=== PATIENT | male | born 1960 | race Caucasian/White ===

== ENCOUNTER 2017-05-05 15:12 | Emergency (ER) | payer SELFPAY ==
--- NOTE | ~2017-05-05 | CR63 ---
[facility] A Service of [facility] / [facility] RADIOLOGY TEXT RESULTS PATIENT: KATI KELLEY LOCATION: SED : 62 UNIT #: [id number] AGE: [address]: Jovany Greer MD SEX: M ORDER DR: [id number] [address] [address] [id number] E MR#: [id number] Acc #: [id number] NAME: KATI KELLEY : 1960 SEX: M STUDY DATE/TIME: 05/05/2017 16:33 UNIT: SED ROOM: STUDY DESCRIPTION: CR Chest 2 View Attending Physician: Jovany Greer M.D. Ordering Physician: Jovany Greer M.D. Primary Care Physician: No Primary Care Physician MEDICAL IMAGING REPORT This report is preliminary unless electronic signature is present. EXAM PA and lateral chest 05/05/2017 HISTORY 57-year-old male in the ED complaining of 1-week history of cough and right-sided chest pain. Hemoptysis began today. TECHNIQUE PA and lateral upright chest series. FINDINGS The examination shows advanced diffuse pulmonary emphysema. Chronic-appearing scarring is noted at both lung bases. Soft tissue prominence is noted at the right lung apex medially along the mediastinal border. Given the finding of emphysema and the history of hemoptysis, chest CT examination is recommended for further assessment to exclude suspicious pulmonary lesion. Heart size and pulmonary vascularity are normal. No visible pleural effusion. IMPRESSION 1. Advanced pulmonary emphysema. 2. Soft tissue prominence at the right lung apex medially. Given the history of hemoptysis, chest CT is recommended for further evaluation. Dictated by... Tani Mann M.D. THIS IS AN ELECTRONICALLY VERIFIED REPORT Tani Mann M.D. at 05/06/2017 12:52 PM RGW/rnr [facility] A Service of [facility] / [facility] RADIOLOGY TEXT RESULTS PATIENT: KATI KELLEY LOCATION: SED : 62 UNIT #: [id number] AGE: [address]: Jovany Greer MD SEX: M ORDER DR: TD: 05/06/2017 02:20 JOB #: [id number] MEDICAL IMAGING REPORT Page 1 of 1
--- NOTE | ~2017-05-05 | CT16 ---
[facility] A Service of [facility] & [facility] RADIOLOGY TEXT RESULTS PATIENT: KATI KELLEY LOCATION: SED : 62 UNIT #: [id number] AGE: [address]: Jovany Greer MD SEX: M ORDER DR: [id number] [address] [address] [id number] E MR#: [id number] Acc #: [id number] NAME: KATI KELLEY : 1960 SEX: M STUDY DATE/TIME: 05/05/2017 17:41 UNIT: SED ROOM: STUDY DESCRIPTION: CT Angio Chest for PE Attending Physician: Jovany Greer M.D. Ordering Physician: Jovany Greer M.D. Primary Care Physician: No Primary Care Physician MEDICAL IMAGING REPORT This report is preliminary unless electronic signature is present. EXAM CT chest with contrast, pulmonary arteriography protocol, 05/05/2017 HISTORY 57-year-old male in the ED complaining of 1-week history of cough and right-sided chest pain. Hemoptysis beginning earlier today. Chest x-ray today showing soft tissue prominence at the right lung apex medially. TECHNIQUE CT examination of the chest was performed with IV contrast using pulmonary arteriography protocol. CTA images were reformatted in multiple planes. This CT exam was performed with one or more of the following radiation dose reduction techniques: automatic control, adjustment of mA and/or kV according to patient size, and iterative reconstruction. FINDINGS There is poor contrast opacification of the pulmonary arteries. No PE is visible within the main pulmonary arteries or central perihilar pulmonary arteries, but PE cannot be excluded in the medium and smaller pulmonary vessels in the mid and peripheral lung zones on this exam. Normal-caliber thoracic aorta. Heart size normal. No pericardial effusion. No suspicious mass is identified within the right lung apex medially, or elsewhere within the chest. Prominence noted on chest x-ray is related to tortuous aortic arch vessels. Moderately severe diffuse pulmonary emphysema. Patchy airspace infiltrate is present in the posterior basal segment of the left lower lobe, and there is fluid or mucoid opacification of central left lower lobe bronchi. There is a small, thin-walled air cavity in the left lower lobe laterally measuring about 2 cm, and there is a loculated pleural air space at the posteromedial left lower lobe margin. Findings [facility] A Service of [facility] & [facility] RADIOLOGY TEXT RESULTS PATIENT: KATI KELLEY LOCATION: [facility] : 62 UNIT #: [id number] AGE: [address]: Jovany Greer MD SEX: M ORDER DR: related to pulmonary infection are likely. Short interval followup chest CT in 2-3 months following therapy is recommended. Minimal patchy infiltrate in the right posterior lung base. Bibasilar pulmonary scarring. Lungs otherwise clear. No pleural effusion. No suspicious mass or adenopathy within the mediastinum or pulmonary jessica. Limited upper abdominal images are within normal limits. IMPRESSION 1. Nondiagnostic study for the exclusion of pulmonary embolism within medium and smaller pulmonary arteries in the mid and peripheral lung zones due to poor contrast opacification of the pulmonary arteries. There is no visible PE within the main pulmonary arteries or large central pulmonary arteries. 2. No suspicious pulmonary or thoracic mass is present at the right lung apex medially as questioned on the earlier chest x-ray. The previously noted abnormality is related to normal but tortuous aortic arch vessels along the mediastinal margin. 3. Moderately severe diffuse pulmonary emphysema. Bibasilar pulmonary scarring. 4. Moderate airspace infiltrate including patchy consolidation within the left lower lobe posteriorly. This is associated with fluid or mucous opacification of central left lower lobe bronchi. There is also a small thin walled cavitary airspace within the left lower lobe laterally and a small pleural air cavity in the left lower lobe medially. Typical or atypical pulmonary infection is likely. However, short interval followup chest CT following completion of therapy in 2-3 months is recommended. 5. Minimal infiltrate right posterior lung base. The lungs are otherwise clear. No pleural effusion. Dictated by... Tani Mann M.D. THIS IS AN ELECTRONICALLY VERIFIED REPORT Tani Mann M.D. at 05/06/2017 12:52 PM TRACY/madyson TD: 05/06/2017 05:45 JOB #: [id number] MEDICAL IMAGING REPORT Page 1 of 1
--- NOTE | ~2017-05-05 | EKG ---
PATIENT: KATI KELLEY UNIT #: [id number] Ventricular Rate: 87 BPM Atrial Rate: 87 BPM P-R Interval: 146 ms QRS Duration: 74 ms Q-T Interval: 328 ms QTC Calculation(Bezet): 394 ms P [place]: 77 degrees Calculated R [place]: 81 degrees Calculated T [place]: 71 degrees Diagnosis Line: Sinus rhythm with marked sinus arrhythmia Diagnosis Line: Otherwise normal ECG Diagnosis Line: No previous ECGs available Diagnosis Line: Confirmed by CHACHA LOWE MD ([id number]) on Diagnosis Line: 05/11/2017 9:00:37 AM INTERPRETING MD: MYNOR HERRMANN
[~2017-05-05 15:12] MED LIST: NO MEDICATIONS
[2017-05-05 16:20] LABS: BASOPHIL# 0.1 X10e3 (0-0.3); BASOPHIL% 0.9 % (0-2.5); EOSINOPHIL# 0.1 X10e3 (0-0.7); EOSINOPHIL% 1.3 % (0.0-7.0); HEMATOCRIT 38.5 % (38.0-50.0); HEMOGLOBIN 13.2 gm/dL (13.0-16.0); LYMPHOCYTE# 2.1 X10e3 (1.0-3.5); LYMPHOCYTE% 32.6 % (17.0-45.0); MEAN CELL VOLUME 91.1 FL (83-96); MEAN CORPUSCULAR HEMOGLOBIN 31.3 PG (28-34); MEAN CORPUSCULAR HGB CONC 34.4 g/dL (30-36); MEAN PLATELET VOLUME 8.2 FL (6.5-11.5); MONOCYTE# 0.5 X10e3 (0-1.0); MONOCYTE% 7.5 % (3.0-12.0); NEUTROPHIL# 3.7 X10e3 (1.5-7.1); NEUTROPHIL% 57.7 % (40-75); PLATELET COUNT 290 X10e3 (140-420); RED BLOOD COUNT 4.23 X10e (3.90-5.60); RED CELL DISTRIBUTION WIDTH 13.6 % (11.0-15.5); WHITE BLOOD COUNT 6.4 X10e3 (4.0-10.5)
[2017-05-05 16:25] LABS: POC - CKMB <1.0 ng/mL (0.0-7.9); POC - TROPONIN <0.05 ng/mL (<=0.05)
[2017-05-05 16:38] LABS: PROTHROMBIN TIME (PATIENT) 11.8 SECONDS (9.5-12.4)
[2017-05-05 16:41] LABS: DIFF IND NO
[2017-05-05 16:45] LABS: PARTIAL THROMBOPLASTIN TIME 28.2 SECONDS (25.6-38.1)
[2017-05-05 16:46] LABS: BILIRUBIN, DIRECT 0.2 mg/dL (0.0-0.2); BILIRUBIN,INDIRECT 0.5 mg/dL (0.0-0.9); BILIRUBIN,TOTAL 0.7 mg/dL (0.2-2.0); BUN/CREATININE RATIO 22.22; CALCIUM SERUM 9.1 mg/dL (8.4-10.2); CREATININE SERUM 0.9 mg/dL (0.6-1.4); GLOM FILT RATE Estimated 95.1 mL/min (>60); MAGNESIUM 1.9 mg/dL (1.6-3.0); POTASSIUM 3.7 mmol/L (3.5-5.1)
== END 2017-05-05 20:04 | disposition home or self-care (01) ==
LOC: SED 15:12
PROVIDERS: Emergency Medicine
DX: J18.9 Pneumonia, unspecified organism (principal); J43.9 Emphysema, unspecified; F17.210 Nicotine dependence, cigarettes, uncomplicated
CPT/HCPCS: 36415; 71020; 71275; 80048; 80076; 82553; 83735; 83880; 84484; 85025; 85379; 85610; 85730; 93005; 96361; 96374; 96375; 99284; J1885; J1956; Q9967